=== PATIENT | male | born 1935 | race African-American/Black ===

== ENCOUNTER 2019-06-04 14:05 | Observation (INO) | payer MEDICARE, BC, MEDICAID ==
--- NOTE | 2019-06-04 15:03 | ULT ---
RIGHT LOWER EXTREMITY VENOUS DUPLEX STUDY: Date: 06/04/19 Veins of right lower extremity evaluated with ultrasound and Doppler. Color Doppler with spectral marta lysis and compression studies performed. INDICATION: Right lower extremity pain and edema. FINDINGS: Deep veins of right lower extremity demonstrate normal blood flow and compression. No evidence of tripp p venous thrombosis. IMPRESSION: No evidence of right lower extremity deep venous thrombosis. POS: [facility]
[2019-06-04 15:15] LABS: #Eosinphils 0.1 thou/uL (0.0-0.7); #Lymphocytes 1.2 thou/uL (1.20-3.40); #Monocytes 0.7 thou/uL (0.11-0.59); #Neutrophils 4.3 thou/uL (1.40-6.50); %Basophils 0.3 % (0.0-1.0); %Eosinophils 1.6 % (0.0-10.0); %Lymphocytes 19.3 % (21.0-51.0); %Monocytes 11.7 % (0.0-10.0); %Neutrophils 67.1 % (42.0-75.0); Hemoglobin 11.2 g/dL (14.0-18.0); Mean Corpuscular HGB CONC 32.1 g/dL (32.0-36.0); Mean Corpuscular Hemoglobin 27.6 pg (27.0-31.0); Mean Platelet Volume 8.9 fL (7.4-10.4); Platelet Count 197 thou/uL (130-400); RBC Distribution Width 14.6 % (11.5-14.5); Red Blood Cell (RBC) Count 4.05 mill/uL (4.70-6.10); White Blood Cell (WBC) Count 6.4 thou/uL (4.8-10.8)
--- NOTE | 2019-06-04 15:34 | RAD ---
XR Ankle Rt 3 View STANDARD HISTORY: Right ankle pain and swelling. FINDINGS: No fracture or dislocation is identified. There are calcaneal spurs. No periosteal reaction or bony d estruction is seen. Soft tissue swelling is present. IMPRESSION: No radiographic evidence of osteomyelitis.
[2019-06-04 15:56] LABS: ALT (SGPT) 31 U/L (8-55); AST (SGOT) 51 U/L (5-34); Albumin 3.8 g/dL (3.4-4.8); Alkaline Phosphatase 89 U/L (40-150); BUN (Urea Nitrogen) 38 mg/dL (8.4-25.7); Bilirubin, Total 0.2 mg/dL (0.2-1.2); Calc. Creatinine Clearance 0 mL/min (70-130); Calcium 9.6 mg/dL (7.8-10.44); Carbon Dioxide 25 mmol/L (23-31); Chloride 111 mmol/L (98-107); Estimated GFR-MDRD 44; Globulin 3.4 g/dL (2.4-3.5); Glucose 114 mg/dL (83-110); Potassium 4.2 mmol/L (3.5-5.1); Protein, Total 7.2 g/dL (5.8-8.1); Sodium 146 mmol/L (136-145)
[2019-06-04 16:05] LABS: Anion Gap 14 mmol/L (10-20)
[2019-06-04] MEDS ORDERED: metroNIDAZOLE 500 MG/100 ML BAG ONE (16:41)
[2019-06-04] MEDS ORDERED: Vancomycin HCl 1.5 GM in Sodium Chloride 0.9% 250 ML 300 ML IVPB ONE (16:45)
[2019-06-04] MEDS ORDERED: levETIRAcetam 500 MG/100 ML PREMIX BAG ONE (17:31)
[2019-06-04] MEDS ORDERED: Ondansetron ODT 4 MG TAB SL PRN (19:36)
[2019-06-04] MEDS ORDERED: Sodium Chloride 0.9% 1,000 ML IV SCH (19:36)
[2019-06-04] MEDS ORDERED: Ondansetron PF 4 MG/2 ML Vial IVP PRN (19:36)
[2019-06-04] MEDS: Sodium Chloride 0.9% 1,000 ML IV SCH (23:45)
[2019-06-05] MEDS ORDERED: metroNIDAZOLE 500 MG in Premix Bag 1 BAG IVPB SCH (01:00)
[2019-06-05 05:29] VITALS: BP 139/70; TEMP 98.1
[2019-06-05] MEDS ORDERED: Ferrous Sulfate 325 MG TAB PO SCH (09:00)
[2019-06-05] MEDS ORDERED: Enoxaparin Sodium 40 MG/0.4 ML SYRINGE SC SCH (09:00)
[2019-06-05] MEDS ORDERED: Amlodipine 5 MG TAB PO SCH (09:00)
[2019-06-05] MEDS ORDERED: Aspirin Chewable 81 MG TAB PO SCH (09:00)
[2019-06-05] MEDS ORDERED: Famotidine 20 MG TAB PO SCH (09:00)
[2019-06-05 10:38] LABS: #Eosinphils 0.1 thou/uL (0.0-0.7); #Lymphocytes 1.3 thou/uL (1.20-3.40); #Monocytes 0.7 thou/uL (0.11-0.59); #Neutrophils 4.3 thou/uL (1.40-6.50); %Basophils 0.1 % (0.0-1.0); %Eosinophils 1.9 % (0.0-10.0); %Lymphocytes 19.6 % (21.0-51.0); %Monocytes 11.4 % (0.0-10.0); Hemoglobin 10.7 g/dL (14.0-18.0); Mean Platelet Volume 8.8 fL (7.4-10.4); Platelet Count 188 thou/uL (130-400); RBC Distribution Width 14.3 % (11.5-14.5); White Blood Cell (WBC) Count 6.4 thou/uL (4.8-10.8)
[2019-06-05] MEDS ORDERED: Vancomycin HCl 1.5 GM in Sodium Chloride 0.9% 250 ML 300 ML IVPB SCH (11:00)
[2019-06-05 11:02] LABS: Anion Gap 9 mmol/L (10-20); BUN (Urea Nitrogen) 24 mg/dL (8.4-25.7); Calc. Creatinine Clearance 51 mL/min (70-130); Calcium 8.7 mg/dL (7.8-10.44); Carbon Dioxide 24 mmol/L (23-31); Chloride 111 mmol/L (98-107); Estimated GFR-MDRD 52; Glucose 74 mg/dL (83-110); Potassium 4.1 mmol/L (3.5-5.1); Sodium 140 mmol/L (136-145)
[2019-06-05] MEDS: Sodium Chloride 0.9% 1,000 ML IV SCH (11:10)
--- NOTE | 2019-06-05 13:02 | HP ---
CHIEF COMPLAINT: Swelling in right leg. HISTORY OF PRESENT ILLNESS: This patient is an 83-year-old male, who lives in a intermediate and has some dementia. The patient is unable to give any significant history. The patient has a history of being somewhat resistant to exam, treatment, and even combative at times per nursing report. The patient apparently has some chronic edema of his lower extremities. He was sent to the emergency department after noticing some specific additional swelling and redness in his right lower extremity. In the ER, the patient was noted to have an open lesion to the medial right ankle area as well. REVIEW OF SYSTEMS: Unable to obtain given the patient's mental status. PAST MEDICAL HISTORY: Obtained from the medical record includes hyperlipidemia, history of stroke, vitamin B deficiency, hypertension, dementia, Alzheimer's with behavioral disturbance, history of schizoaffective disorder, mood disruptive dysregulation disorder, anxiety, chronic insomnia, and chronic anemia. PAST SURGICAL HISTORY: Unknown, although there does not appear to be any significant evidence of prior surgeries. SOCIAL HISTORY: The patient was in a intermediate. Other than that, social history is not significantly noted. ALLERGIES: LISINOPRIL AND PENICILLINS. MEDICATIONS: 1. Guaifenesin. 2. Clonidine. 3. MiraLAX. 4. Metoprolol XL 50 mg daily. 5. Levsin p.r.n. 6. Feosol 325 b.i.d. 7. Dulcolax p.r.n. 8. Aspirin 81 mg daily. 9. Norvasc 5 mg daily. 10. Tylenol p.r.n. PHYSICAL EXAMINATION: VITAL SIGNS: Temperature is 97.9, pulse 75, and BP was 164/94. GENERAL APPEARANCE: Age-appropriate male. He is in no distress. Initially in the emergency room, the patient was talking somewhat, but on my interview in the patient's room, he is not really wanting to talk to me. His pupils are reactive. Declining in oral exam. HEART: Regular rate and rhythm without significant murmurs, gallops, or rubs. LUNGS: Clear bilaterally. ABDOMEN: Soft, nontender, and nondistended with positive bowel sounds. EXTREMITIES: The patient does have some bilateral lower extremity edema. It is about 1+ on the left and 2+ on the right with the right calf being larger than the left. There is generalized erythema and warmth encompassing the right calf area. There is an ulcerated lesion on the medial calf. It is about 2 cm in size without a significant amount of drainage present. There appears to be some varicosities in the area as well. PSYCH: As above. The patient is non-interactive. NEUROLOGIC: The patient appears to be moving his extremities generally spontaneously. LABORATORY DATA: White count 6.4, hemoglobin 11.2, platelets 197. Sodium 146, potassium 4.2, chloride 111, CO2 is 25, BUN 38, creatinine 1.81, GFR is 44, calcium 9.6, AST 51, ALT is 31. CRP is 2.35. Vascular ultrasound shows no evidence of DVT and ankle x-ray shows no evidence of acute osteo. IMPRESSION AND PLAN: 1. Cellulitis of the right lower extremity, appears to be emanating from a stasis ulcer. The patient will be placed on IV antibiotics to include vancomycin and Zosyn initially. He has already received vancomycin, Levaquin and Flagyl in the emergency department. 2. Stasis ulcer. We will get Wound Care to evaluate and treat. 3. Chronic kidney disease stage 3. Looks to be at his baseline creatinine levels. 4. Mild hypernatremia. I suspect he is a bit dry. We will hydrate. 5. History of dementia with behavior disturbance. So far, the patient has been okay. We will provide some p.r.n.'s in case that should occur again for safety of the staff. 6. Hypertension. Continue with metoprolol and amlodipine. Job ID: [id number]
[2019-06-05 13:33] VITALS: BMI 32.2
[2019-06-05] MEDS ORDERED: Clindamycin/D5W 900 MG in Premix Bag 1 BAG IVPB SCH (14:00)
[2019-06-05] MEDS ORDERED: Prevnar 13-Val Conj/PF 0.5 ML SYRINGE IM ONE (21:00)
[2019-06-05] MEDS ORDERED: Vancomycin HCl 1 GM in Premix Bag 1 BAG IVPB SCH (21:00)
== END 2019-06-05 14:11 ==
LOC: ERS 14:05 → T4-A 17:05
PROVIDERS: ADMIT Internal Medicine; ATTEND Internal Medicine
DX: I83.008 Varicose veins of unspecified lower extremity with ulcer other part of lower leg (principal); L97.809 Non-pressure chronic ulcer of other part of unspecified lower leg with unspecified severity; E78.5 Hyperlipidemia, unspecified; I12.9 Hypertensive chronic kidney disease with stage 1 through stage 4 chronic kidney disease, or unspecified chronic kidney disease; N18.3 Chronic kidney disease, stage 3 (moderate); G30.9 Alzheimer's disease, unspecified; F02.81 Dementia in other diseases classified elsewhere, unspecified severity, with behavioral disturbance; F41.9 Anxiety disorder, unspecified; F51.04 Psychophysiologic insomnia; E87.0 Hyperosmolality and hypernatremia; Z79.82 Long term (current) use of aspirin; Z79.899 Other long term (current) drug therapy; Z86.73 Personal history of transient ischemic attack (TIA), and cerebral infarction without residual deficits; Z88.0 Allergy status to penicillin; Z88.8 Allergy status to other drugs, medicaments and biological substances; D64.9 Anemia, unspecified
CPT/HCPCS: 73610; 80048; 80053; 85025 ×2; 85652; 86140; 93971; 96361 ×2; 96365; 96366 ×2; 96368; 99285; G0378 ×3; 36415; J1650; J1953; J1956; J3370; J7050

== ENCOUNTER 2019-09-27 12:31 | Inpatient (IN) | payer MEDICARE, BC, MEDICAID ==
[2019-09-27 13:30] LABS: Hemoglobin 10.8 g/dL (14.0-18.0); Mean Corpuscular Hemoglobin 27.6 pg (27.0-31.0); Platelet Count 166 thou/uL (130-400); RBC Distribution Width 15.6 % (11.5-14.5); Red Blood Cell (RBC) Count 3.93 mill/uL (4.70-6.10); White Blood Cell (WBC) Count 16.1 thou/uL (4.8-10.8)
[2019-09-27 13:49] LABS: ALT (SGPT) 19 U/L (8-55); AST (SGOT) 20 U/L (5-34); Albumin 3.3 g/dL (3.4-4.8); Alkaline Phosphatase 94 U/L (40-110); Anion Gap 13 mmol/L (10-20); BUN (Urea Nitrogen) 49 mg/dL (8.4-25.7); Band 17 % (5-11); Bilirubin, Total 0.3 mg/dL (0.2-1.2); Calc. Creatinine Clearance 0 mL/min (70-130); Calcium 9.4 mg/dL (7.8-10.44); Carbon Dioxide 25 mmol/L (23-31); Chloride 111 mmol/L (98-107); Estimated GFR-MDRD 29; Globulin 4.1 g/dL (2.4-3.5); Glucose 75 mg/dL (83-110); Lymphocytes 7 % (21-51); MDiff Complete? YES; Metamyelocyte 1 % (0-0); Monocytes 1 % (0-10); Neutrophil 74 % (42-75); Potassium 3.8 mmol/L (3.5-5.1); Protein, Total 7.4 g/dL (5.8-8.1); Sodium 145 mmol/L (136-145)
[2019-09-27] MEDS ORDERED: cefTRIAXone\\ROCEPHIN 2 GM VIAL ONE (14:02)
[2019-09-27] MEDS ORDERED: Acetaminophen 325 MG TAB PO PRN (14:14)
[2019-09-27 14:19] LABS: Bilirubin Negative (Negative); Blood, Urine 1+ (Negative); Clarity Clear (Clear); Glucose, Urine (Dipstick) Normal (Negative); Leukocyte Negative Leu/uL (Negative); Nitrite Negative (Negative); Protein, Urine (Dipstick) 30 mg/dL (Neg-Trace); RBC/HPF 0-3 HPF (0-3); Squamous Epithelial 0-3 HPF (0-3); Urobilinogen Normal mg/dL (Less than 2); WBC/HPF 0-3 HPF (0-3)
--- NOTE | 2019-09-27 14:24 | RAD ---
EXAM: XR Tib Fib Rt Leg 2 View PROVIDED CLINICAL HISTORY: Pain FINDINGS: There is no evidence for fracture or other acute osseous abnormality. Alignment appears anatomic. Kelsie nt spaces appear preserved. IMPRESSION: No evidence for an acute osseous abnormality. If there is persistent clinical concern, conservative m anagement and follow-up imaging advised.
[2019-09-27 14:38] LABS: Bacteria/HPF 1+ HPF (None Seen)
[2019-09-27] MEDS ORDERED: cloNIDine 0.1 MG TAB PO PRN ×2 (15:52→16:46)
[2019-09-27 15:56] VITALS: BMI 29.8
[2019-09-27] MEDS ORDERED: Vancomycin 1.5 GRAM/300 ML BAG 1.5 GM in Premix Bag 1 BAG IVPB SCH (16:15)
[2019-09-27] MEDS ORDERED: Haloperidol Lactate 5 MG/ML VIAL IM SCH (16:30)
[2019-09-27] MEDS: Ziprasidone 20 MG VIAL IM PRN ×2 (16:40→22:44)
[2019-09-27] MEDS ORDERED: Sodium Chloride 0.9% 1,000 ML IV SCH (16:45)
--- NOTE | 2019-09-27 17:12 | HP ---
CHIEF COMPLAINT: Possible right lower extremity wound infection. HISTORY OF PRESENT ILLNESS: The patient is an 84-year-old male with a history of dementia and also with a history of bipolar disorder, who was brought into the hospital from his [place] [facility] with worsening right lower extremity wound. The patient currently is very agitated, unable to provide any history. I did call the . I left message to give us a call back. Per the ER notes, the patient has been seeing wound care for his wound in his right lower extremity, however, it continues to become be more red and he also had some redness to his groin area. PAST MEDICAL HISTORY: Per records, the patient has a history of TIA, stroke, anemia, hypertension, dementia, metabolic encephalopathy. PAST SURGICAL HISTORY: Unknown. This is per records. SOCIAL HISTORY: He is in [place] [facility]. I do not have a code status, that is why I called the patient's , unable to reach her. It does not appear that the patient has a history of smoking history, alcohol use, or drug use. ALLERGIES: ALLERGIC TO LISINOPRIL AND PENICILLIN, UNKNOWN REACTION. MEDICATIONS: He is on; 1. MiraLAX 17 g daily. 2. Metoprolol 50 mg daily. 3. Dulcolax p.r.n. 4. Aspirin 81 mg daily. 5. Norvasc 5 mg daily. 6. Tylenol as needed. 7. Clonidine every 6 p.r.n. FAMILY HISTORY: Unable to obtain. The patient is not in a position to give me that. REVIEW OF SYSTEMS: Unable to obtain. The patient's mental status is not listed. PHYSICAL EXAMINATION: VITAL SIGNS: As of the following; temperature of 97.4, pulse 82, respirations 20, 94% on room air, blood pressure 152/82. GENERAL: He is awake, however, very confused, very combative. CV: S1 and S2 present. No murmurs, rubs, or gallops. LUNGS: Clear to auscultation. No rhonchi or wheezes noted. ABDOMEN: Soft. Bowel sounds are present x2. EXTREMITIES: His right foot appears to have some erythema. He does have a pretty significant open wound to his right lower lemus area. Unable to appreciate any pedal pulses. The patient is very combative at this time. The patient's right groin area appears very lazarus. Upon examining his right testicle, no significant erythema noted. However, he does have significant redness around his right inner thigh area. NEUROVASCULAR: Neurovascular murguia, he is moving all 4 extremities. However, mentation murguia, he is not oriented x3 at all. SKIN: As I mentioned, he has a significant nonhealing ulcer to his right lower lemus area and redness around his right thigh area. LABORATORY RESULTS: As of the following; WBCs of 16.1, hemoglobin of 10.8, hematocrit of 33.8, platelets 166. Chemistry; sodium of 145, potassium of 3.8, BUN of 49, creatinine of 2.59, glucose of 75. He did have a tibia-fibula x-ray which did not indicate any acute processes. No evidence of osseous abnormalities. ASSESSMENT AND PLAN: The patient is an 84-year-old male, who presents to the hospital with worsening right lower extremity wound. 1. Cellulitis. Possible right groin cellulitis and also he has some erythema to his right lower extremity where his old wound was. We will go ahead and do lower extremity venous Dopplers to rule out any acute DVT. We will also start him on some broad-spectrum antibiotics. May consider consulting Infectious Disease. He has had an ulcer to his right leg around the same area in the past. May also consider arterial Dopplers to see the flow. 2. Acute kidney injury. The patient's baseline creatinine is around 1.5, today it is 2.59. We will start him on some gentle hydration. Continue to monitor. 3. Leukocytosis. This is most likely secondary to his cellulitis. We will continue to monitor. 4. Dementia. The patient is really not oriented x3 at all. He is trying to get up combative. We have called his . We might have to get a sitter and we will have to give him some chemical restraints if the patient continues to be agitated. 5. DVT prophylaxis. We will put the patient on some subcu heparin. Job ID: [id number]
[2019-09-27] MEDS ORDERED: Acetaminophen 650 MG Suppository PR PRN (18:57)
[2019-09-27] MEDS ORDERED: Vancomycin HCl 1 GM in Premix Bag 1 BAG IVPB SCH (21:00)
[2019-09-27] MEDS: Ascorbic Acid 500 mg Chewable Tablet PO SCH (22:36)
[2019-09-27] MEDS: Ferrous Sulfate 325 MG TAB PO SCH (22:37)
[2019-09-28 06:44] LABS: Anion Gap 13 mmol/L (10-20); BUN (Urea Nitrogen) 37 mg/dL (8.4-25.7); Calc. Creatinine Clearance 38 mL/min (70-130); Calcium 9.5 mg/dL (7.8-10.44); Carbon Dioxide 21 mmol/L (23-31); Chloride 114 mmol/L (98-107); Estimated GFR-MDRD 39; Glucose 74 mg/dL (83-110); Potassium 4.1 mmol/L (3.5-5.1); Sodium 144 mmol/L (136-145)
--- NOTE | 2019-09-28 07:36 | ULT ---
EXAM: Bilateral lower extremity venous Doppler PROVIDED CLINICAL HISTORY: Pain, edema, redness FINDINGS: Grayscale and color Doppler sonography with spectral analysis was performed of the common femoral, fe moral, popliteal, posterior tibial, greater saphenous and profunda femoral veins bilaterally. The evaluated venous structures demonstrate a normal sonographic appearance. IMPRESSION: No sonographic evidence for lower extremity deep venous thrombosis.
[2019-09-28 07:44] LABS: Anisocytosis SLIGHT = 6-15 cells (100X) (0-5/hpf); Band 22 % (5-11); Eosinophils 1 % (0-10); Hemoglobin 11.3 g/dL (14.0-18.0); Lymphocytes 7 % (21-51); MDiff Complete? YES; Mean Corpuscular HGB CONC 31.2 g/dL (32.0-36.0); Mean Corpuscular Hemoglobin 27.2 pg (27.0-31.0); Mean Corpuscular Volume 87.1 fL (78.0-98.0); Mean Platelet Volume 10.6 fL (7.4-10.4); Neutrophil 69 % (42-75); Platelet Count 145 thou/uL (130-400); RBC Distribution Width 15.9 % (11.5-14.5); Reactive Lymphocytes 1 % (0-10); Red Blood Cell (RBC) Count 4.15 mill/uL (4.70-6.10); White Blood Cell (WBC) Count 14.6 thou/uL (4.8-10.8)
[2019-09-28] MEDS: cefTRIAXone\\ROCEPHIN 1 GM in Sodium Chloride 0.9% 100 ML IVPB SCH (08:15)
[2019-09-28] MEDS: Enoxaparin Sodium 30 MG/0.3 ML SYRINGE SC SCH (08:17)
[2019-09-28] MEDS ORDERED: Prevnar 13-Val Conj/PF 0.5 ML SYRINGE IM ONE (09:00)
[2019-09-28] MEDS ORDERED: FLU VACC TS2019-20(65YR UP)/PF 180 MCG/0.5 ML SYRINGE IM ONE (09:00)
[2019-09-28] MEDS: Ferrous Sulfate 325 MG TAB PO SCH ×2 (09:24→21:43)
[2019-09-28] MEDS: Amlodipine 5 MG TAB PO SCH (09:24)
[2019-09-28] MEDS: Aspirin Chewable 81 MG TAB PO SCH (09:24)
[2019-09-28] MEDS: Ascorbic Acid 500 mg Chewable Tablet PO SCH ×2 (09:24→21:43)
[2019-09-28] MEDS: Zinc Sulfate 220 MG CAP PO SCH (09:25)
[2019-09-28] MEDS: Polyethylene Glycol 3350 17 GM Packet PO SCH (09:25)
[2019-09-28] MEDS: Lactinex Tablet PO SCH (09:25)
--- NOTE | 2019-09-28 14:41 | PDOC.HOSPP ---
- Subjective Encounter Date: 09/28/19 Encounter Time: 11:00 Subjective: pt up in bed confused. - Objective Vital Signs & Weight: Vital Signs (12 hours) Temp Pulse Resp BP Pulse Ox 09/28/19 11:37 97.4 F L 77 20 164/95 H 97 09/28/19 09:24 75 09/28/19 08:06 97.4 F L 75 20 212/86 H 93 L 09/28/19 08:00 93 L 09/28/19 04:00 73 18 167/88 H 97 Weight Weight 220 lb I&O: 09/27/19 09/28/19 09/29/19 06:59 06:59 06:59 Intake Total 425 180 Output Total 425 Balance 0 180 Result Diagrams: 09/28/19 06:04 09/28/19 06:04 Additional Labs: Accuchecks 09/28/19 11:35 POC Glucose 72 Hospitalist ROS - Review of Systems Other: unable to obtain - Medication Medications: Active Medications Generic Name Dose Route Start Last Admin Trade Name Freq PRN Reason Stop Dose Admin Acidophilus 1 tab 09/28/19 09:00 09/28/19 09:25 Floranex PO Not Given DAILY [facility] Amlodipine Besylate 5 mg 09/28/19 09:00 09/28/19 09:24 Norvasc PO Not Given DAILY [facility] Ascorbic Acid 500 mg 09/27/19 21:00 09/28/19 09:24 Vitamin C PO Not Given BID [facility] Aspirin 81 mg 09/28/19 09:00 09/28/19 09:24 Aspirin Chewable PO Not Given DAILY [facility] Enoxaparin Sodium 30 mg 09/28/19 09:00 09/28/19 08:17 Lovenox SC 30 mg 09 [facility] Administration Ferrous Sulfate 325 mg 09/27/19 21:00 09/28/19 09:24 Feosol PO Not Given BID [facility] Ceftriaxone Sodium 1 gm/ 100 mls @ 200 mls/hr 09/28/19 09:00 09/28/19 08:15 Sodium Chloride IVPB 100 mls Q24HR [facility] Administration Metoprolol Succinate 50 mg 09/28/19 09:00 09/28/19 09:25 Toprol Xl PO Not Given DAILY [facility] Polyethylene Glycol 17 gm 09/28/19 09:00 09/28/19 09:25 Miralax PO Not Given DAILY [facility] Zinc Sulfate 220 mg 09/28/19 09:00 09/28/19 09:25 Zinc Sulfate PO Not Given DAILY [facility] Ziprasidone 10 mg 09/27/19 16:31 09/27/19 22:44 Geodon IM 10 mg Q6H PRN Administration Agitation - Exam Heart: negative: RRR, no murmur, no gallops, no rubs, normal peripheral pulses, irregular, diminshed peripheral pulses, murmur present, II/IV, III/IV Respiratory: negative: CTAB, no wheezes, no rales, no ronchi, normal chest expansion, no tachypnea, normal percussion, rales, rhonchi, tachypneic, wheezes Gastrointestinal: negative: soft, non-tender, non-distended, normal bowel sounds , no palpable masses, no hepatomegaly, no splenomegaly, no bruit, no guarding, no rigidity, tender to palpation, distended, diminished bowl sounds, voluntary guarding Skin - other findings: right thigh still has some erythema improved from yest Hosp A/P (1) Acute metabolic encephalopathy Code(s): G93.41 - METABOLIC ENCEPHALOPATHY Status: Acute (2) Cellulitis Code(s): L03.90 - CELLULITIS, UNSPECIFIED Status: Acute (3) Schizoaffective disorder Code(s): F25.9 - SCHIZOAFFECTIVE DISORDER, UNSPECIFIED Status: Acute (4) Hypertension Code(s): I10 - ESSENTIAL (PRIMARY) HYPERTENSION Status: Chronic (5) LELE (acute kidney injury) Code(s): N17.9 - ACUTE KIDNEY FAILURE, UNSPECIFIED Status: Acute - Plan pt was very agitated and was given medication. will continue abx for now. doppler is negative. will add seroquel for tonight. will continue iv fluids. tried to call the number no answer. will get palliative care for this patient.
[2019-09-28 16:47] LABS: Vancomycin, Random 10.9 ug/mL (See Comment)
[2019-09-28] MEDS ORDERED: Vancomycin 1.5 GRAM/300 ML BAG 1.5 GM in Premix Bag 1 BAG IVPB SCH (20:00)
[2019-09-28] MEDS: Ziprasidone 20 MG VIAL IM PRN (20:48)
[2019-09-29] MEDS: Zinc Sulfate 220 MG CAP PO SCH (07:57)
[2019-09-29] MEDS: Ferrous Sulfate 325 MG TAB PO SCH ×2 (07:57→21:00)
[2019-09-29] MEDS: Lactinex Tablet PO SCH (07:57)
[2019-09-29] MEDS: Ascorbic Acid 500 mg Chewable Tablet PO SCH ×2 (07:57→21:00)
[2019-09-29] MEDS: Amlodipine 5 MG TAB PO SCH (07:58)
[2019-09-29] MEDS: Aspirin Chewable 81 MG TAB PO SCH (07:59)
[2019-09-29] MEDS: cefTRIAXone\\ROCEPHIN 1 GM in Sodium Chloride 0.9% 100 ML IVPB SCH (07:59)
[2019-09-29] MEDS: Enoxaparin Sodium 30 MG/0.3 ML SYRINGE SC SCH (07:59)
[2019-09-29] MEDS: Polyethylene Glycol 3350 17 GM Packet PO SCH (08:00)
[2019-09-29] MEDS: hydrALAZINE 20 MG/ML VIAL SLOW IVP PRN (08:38)
--- NOTE | 2019-09-29 13:36 | PDOC.HOSPP ---
- Subjective Encounter Date: 09/29/19 Encounter Time: 12:15 Subjective: pt drowsy and when we wake him up he gets agitated. - Objective Vital Signs & Weight: Vital Signs (12 hours) Temp Pulse Resp BP BP BP Pulse Ox 09/29/19 12:00 99.0 F 93 20 175/87 H 98 09/29/19 09:54 165/79 H 09/29/19 08:38 87 204/98 H 09/29/19 08:00 97.9 F 84 18 204/98 H 97 09/29/19 07:58 85 09/29/19 04:25 89 16 165/83 H 99 09/29/19 04:13 99.1 F 91 20 184/99 H 99 Weight Weight 220 lb I&O: 09/28/19 09/29/19 09/30/19 06:59 06:59 06:59 Intake Total 425 200 Output Total 425 Balance 0 200 Result Diagrams: 09/28/19 06:04 09/28/19 06:04 Additional Labs: Accuchecks 09/29/19 09/28/19 12:13 16:57 POC Glucose 63 L 75 Hospitalist ROS - Review of Systems Other: unable to obtain - Medication Medications: Active Medications Generic Name Dose Route Start Last Admin Trade Name Freq PRN Reason Stop Dose Admin Acidophilus 1 tab 09/28/19 09:00 09/29/19 07:57 Floranex PO 1 tab DAILY [facility] Administration Amlodipine Besylate 5 mg 09/28/19 09:00 09/29/19 07:58 Norvasc PO 5 mg DAILY [facility] Administration Ascorbic Acid 500 mg 09/27/19 21:00 09/29/19 07:57 Vitamin C PO 500 mg BID [facility] Administration Aspirin 81 mg 09/28/19 09:00 09/29/19 07:59 Aspirin Chewable PO 81 mg DAILY [facility] Administration Enoxaparin Sodium 30 mg 09/28/19 09:00 09/29/19 07:59 Lovenox SC 30 mg 0900 [facility] Administration Ferrous Sulfate 325 mg 09/27/19 21:00 09/29/19 07:57 Feosol PO 325 mg BID [facility] Administration Hydralazine HCl 5 mg 09/28/19 08:15 09/29/19 08:38 Apresoline SLOW IVP 5 mg Q6H PRN Administration sbp>170 Ceftriaxone Sodium 1 gm/ 100 mls @ 200 mls/hr 09/28/19 09:00 09/29/19 07:59 Sodium Chloride IVPB 100 mls Q24HR [facility] Administration Metoprolol Succinate 50 mg 09/28/19 09:00 09/29/19 07:58 Toprol Xl PO 50 mg DAILY [facility] Administration Polyethylene Glycol 17 gm 09/28/19 09:00 09/29/19 08:00 Miralax PO 17 gm DAILY [facility] Administration Quetiapine Fumarate 50 mg 09/28/19 19:00 09/28/19 17:24 Seroquel PO 50 mg 1900 [facility] Administration Zinc Sulfate 220 mg 09/28/19 09:00 09/29/19 07:57 Zinc Sulfate PO 220 mg DAILY [facility] Administration - Exam Neck: negative: supple, symmetric, no JVD, no thyromegaly, no lymphadenopathy, no carotid bruit, JVD Heart: negative: RRR, no murmur, no gallops, no rubs, normal peripheral pulses, irregular, diminshed peripheral pulses, murmur present, II/IV, III/IV Respiratory: negative: CTAB, no wheezes, no rales, no ronchi, normal chest expansion, no tachypnea, normal percussion, rales, rhonchi, tachypneic, wheezes Gastrointestinal: negative: soft, non-tender, non-distended, normal bowel sounds , no palpable masses, no hepatomegaly, no splenomegaly, no bruit, no guarding, no rigidity, tender to palpation, distended, diminished bowl sounds, voluntary guarding Skin - other findings: right erythema improving Hosp A/P (1) Acute metabolic encephalopathy Code(s): G93.41 - METABOLIC ENCEPHALOPATHY Status: Acute (2) Cellulitis Code(s): L03.90 - CELLULITIS, UNSPECIFIED Status: Acute (3) Schizoaffective disorder Code(s): F25.9 - SCHIZOAFFECTIVE DISORDER, UNSPECIFIED Status: Acute (4) Hypertension Code(s): I10 - ESSENTIAL (PRIMARY) HYPERTENSION Status: Chronic (5) LELE (acute kidney injury) Code(s): N17.9 - ACUTE KIDNEY FAILURE, UNSPECIFIED Status: Acute - Plan pt was very agitated and was given medication. will continue abx for now. doppler is negative. will add seroquel for tonight. will continue iv fluids. tried to call the number no answer. will get palliative care for this patient. 09/29 pt given meds for agitation last night. He is now drowsy. i called the alf to ask his baseline. They informed me that he is agitated at time but at time he does well. They feed him finger foods and then he at times tries to feed himself. Per nursing he also ambulates. I did ask for any additional numbers since his did not picker / packer. They informed me it is the same number and at times pt's goes to see her sister. i have decreased the dose of geodon. will order finger food and get palliative care. his cellulitis is doing well. I am afraid he is not eating and will get more weaker.
[2019-09-29] MEDS: Dextrose 5 % And 0.9 % NaCl 1,000 ML IV SCH (13:45)
[2019-09-29 18:50] LABS: Vancomycin, Random 17.6 ug/mL (See Comment)
[2019-09-29] MEDS ORDERED: Vancomycin 1.5 GRAM/300 ML BAG 1.5 GM in Premix Bag 1 BAG IVPB SCH (20:00)
[2019-09-30] MEDS: hydrALAZINE 20 MG/ML VIAL SLOW IVP PRN (05:13)
[2019-09-30 05:36] LABS: Anion Gap 12 mmol/L (10-20); BUN (Urea Nitrogen) 18 mg/dL (8.4-25.7); Calc. Creatinine Clearance 41 mL/min (70-130); Calcium 9.2 mg/dL (7.8-10.44); Carbon Dioxide 23 mmol/L (23-31); Chloride 115 mmol/L (98-107); Estimated GFR-MDRD 42; Glucose 100 mg/dL (83-110); Potassium 3.5 mmol/L (3.5-5.1); Sodium 146 mmol/L (136-145)
[2019-09-30 06:51] LABS: Anisocytosis SLIGHT = 6-15 cells (100X) (0-5/hpf); Band 5 % (5-11); Eosinophils 2 % (0-10); Lymphocytes 23 % (21-51); MDiff Complete? YES; Mean Corpuscular HGB CONC 31.5 g/dL (32.0-36.0); Mean Corpuscular Hemoglobin 26.9 pg (27.0-31.0); Mean Corpuscular Volume 85.7 fL (78.0-98.0); Mean Platelet Volume 9.8 fL (7.4-10.4); Monocytes 4 % (0-10); Neutrophil 66 % (42-75); Platelet Count 170 thou/uL (130-400); RBC Distribution Width 15.7 % (11.5-14.5); White Blood Cell (WBC) Count 8.4 thou/uL (4.8-10.8)
[2019-09-30] MEDS: Lactinex Tablet PO SCH (07:58)
[2019-09-30] MEDS: Ferrous Sulfate 325 MG TAB PO SCH ×2 (07:59→19:55)
[2019-09-30] MEDS: Aspirin Chewable 81 MG TAB PO SCH (07:59)
[2019-09-30] MEDS: Ascorbic Acid 500 mg Chewable Tablet PO SCH ×2 (07:59→19:55)
[2019-09-30] MEDS: Amlodipine 5 MG TAB PO SCH (07:59)
[2019-09-30] MEDS: Zinc Sulfate 220 MG CAP PO SCH (07:59)
[2019-09-30] MEDS: cefTRIAXone\\ROCEPHIN 1 GM in Sodium Chloride 0.9% 100 ML IVPB SCH (08:00)
[2019-09-30] MEDS: Enoxaparin Sodium 30 MG/0.3 ML SYRINGE SC SCH (08:00)
[2019-09-30] MEDS: Dextrose 5 % And 0.9 % NaCl 1,000 ML IV SCH (08:01)
[2019-09-30] MEDS: Polyethylene Glycol 3350 17 GM Packet PO SCH (08:01)
--- NOTE | 2019-09-30 14:30 | PDOC.HOSPP ---
- Subjective Encounter Date: 09/30/19 Encounter Time: 11:00 Subjective: pt up in bed confused - Objective Vital Signs & Weight: Vital Signs (12 hours) Temp Pulse Resp BP BP BP Pulse Ox 09/30/19 12:00 98.0 F 76 20 170/110 H 97 09/30/19 08:00 100 09/30/19 07:59 85 09/30/19 07:29 98.4 F 85 20 100 09/30/19 06:00 137/95 H 09/30/19 05:13 82 175/98 H 09/30/19 04:46 99.0 F 81 20 181/85 H 94 L Weight Admit Weight 220 lb Weight 220 lb I&O: 09/29/19 09/30/19 10/01/19 06:59 06:59 06:59 Intake Total 200 1000 120 Output Total 250 Balance 200 750 120 Result Diagrams: 09/30/19 05:03 09/30/19 05:03 Hospitalist ROS - Medication Medications: Active Medications Generic Name Dose Route Start Last Admin Trade Name Freq PRN Reason Stop Dose Admin Acidophilus 1 tab 09/28/19 09:00 09/30/19 07:58 Floranex PO 1 tab DAILY [facility] Administration Amlodipine Besylate 5 mg 09/28/19 09:00 09/30/19 07:59 Norvasc PO 5 mg DAILY [facility] Administration Ascorbic Acid 500 mg 09/27/19 21:00 09/30/19 07:59 Vitamin C PO 500 mg BID [facility] Administration Aspirin 81 mg 09/28/19 09:00 09/30/19 07:59 Aspirin Chewable PO 81 mg DAILY [facility] Administration Enoxaparin Sodium 30 mg 09/28/19 09:00 09/30/19 08:00 Lovenox SC 30 mg 0900 [facility] Administration Ferrous Sulfate 325 mg 09/27/19 21:00 09/30/19 07:59 Feosol PO 325 mg BID [facility] Administration Hydralazine HCl 5 mg 09/28/19 08:15 09/30/19 05:13 Apresoline SLOW IVP 5 mg Q6H PRN Administration sbp>170 Ceftriaxone Sodium 1 gm/ 100 mls @ 200 mls/hr 09/28/19 09:00 09/30/19 08:00 Sodium Chloride IVPB 100 mls Q24HR [facility] Administration Dextrose/Sodium Chloride 1,000 mls @ 50 mls/hr 09/29/19 13:45 09/30/19 08:01 D5 0.9% Ns IV 1,000 mls .Q20H [facility] Administration Metoprolol Succinate 50 mg 09/28/19 09:00 09/30/19 07:59 Toprol Xl PO 50 mg DAILY [facility] Administration Polyethylene Glycol 17 gm 09/28/19 09:00 09/30/19 08:01 Miralax PO 17 gm DAILY [facility] Administration Quetiapine Fumarate 50 mg 09/28/19 19:00 09/29/19 18:31 Seroquel PO 50 mg 1900 [facility] Administration Zinc Sulfate 220 mg 09/28/19 09:00 09/30/19 07:59 Zinc Sulfate PO 220 mg DAILY [facility] Administration - Exam Heart: negative: RRR, no murmur, no gallops, no rubs, normal peripheral pulses, irregular, diminshed peripheral pulses, murmur present, II/IV, III/IV Respiratory: negative: CTAB, no wheezes, no rales, no ronchi, normal chest expansion, no tachypnea, normal percussion, rales, rhonchi, tachypneic, wheezes Gastrointestinal: negative: soft, non-tender, non-distended, normal bowel sounds , no palpable masses, no hepatomegaly, no splenomegaly, no bruit, no guarding, no rigidity, tender to palpation, distended, diminished bowl sounds, voluntary guarding Hosp A/P (1) Acute metabolic encephalopathy Code(s): G93.41 - METABOLIC ENCEPHALOPATHY Status: Acute (2) Cellulitis Code(s): L03.90 - CELLULITIS, UNSPECIFIED Status: Acute (3) Schizoaffective disorder Code(s): F25.9 - SCHIZOAFFECTIVE DISORDER, UNSPECIFIED Status: Acute (4) Hypertension Code(s): I10 - ESSENTIAL (PRIMARY) HYPERTENSION Status: Chronic (5) LELE (acute kidney injury) Code(s): N17.9 - ACUTE KIDNEY FAILURE, UNSPECIFIED Status: Acute - Plan pt was very agitated and was given medication. will continue abx for now. doppler is negative. will add seroquel for tonight. will continue iv fluids. tried to call the number no answer. will get palliative care for this patient. 09/29 pt given meds for agitation last night. He is now drowsy. i called the senior care to ask his baseline. They informed me that he is agitated at time but at time he does well. They feed him finger foods and then he at times tries to feed himself. Per nursing he also ambulates. I did ask for any additional numbers since his did not pick out hand. They informed me it is the same number and at times pt's goes to see her sister. i have decreased the dose of geodon. will order finger food and get palliative care. his cellulitis is doing well. I am afraid he is not eating and will get more weaker. 09/30 pt did eat some food yesterday. His mood is better. will hold off on geodon and give him seroquel. will continue abx. will call his in am since she goes to see her sister in the afternoon.
[2019-10-01 01:31] LABS: Vancomycin, Random 16.3 ug/mL (See Comment)
[2019-10-01] MEDS: Dextrose 5 % And 0.9 % NaCl 1,000 ML IV SCH (05:47)
[2019-10-01] MEDS: Amlodipine 5 MG TAB PO SCH (08:13)
[2019-10-01] MEDS: Lactinex Tablet PO SCH (08:14)
[2019-10-01] MEDS: Aspirin Chewable 81 MG TAB PO SCH (08:14)
[2019-10-01] MEDS: Ferrous Sulfate 325 MG TAB PO SCH ×2 (08:14→20:10)
[2019-10-01] MEDS: Zinc Sulfate 220 MG CAP PO SCH (08:15)
[2019-10-01] MEDS: Ascorbic Acid 500 mg Chewable Tablet PO SCH ×2 (08:15→20:10)
[2019-10-01] MEDS: Polyethylene Glycol 3350 17 GM Packet PO SCH (08:15)
[2019-10-01] MEDS: Enoxaparin Sodium 30 MG/0.3 ML SYRINGE SC SCH (08:15)
[2019-10-01] MEDS: cefTRIAXone\\ROCEPHIN 1 GM in Sodium Chloride 0.9% 100 ML IVPB SCH (08:23)
[2019-10-01] MEDS: Vancomycin HCl 1 GM in Premix Bag 1 BAG IVPB SCH (08:28)
--- NOTE | 2019-10-01 21:25 | PDOC.HOSPP ---
- Subjective Encounter Date: 10/01/19 Encounter Time: 10:00 Subjective: pt up in bed confused - Objective Vital Signs & Weight: Vital Signs (12 hours) Temp Pulse Resp BP BP Pulse Ox 10/01/19 19:22 99.7 F H 87 20 124/58 L 10/01/19 16:00 98.4 F 80 20 156/70 H 97 Weight Admit Weight 220 lb Weight 220 lb I&O: 09/30/19 10/01/19 10/02/19 06:59 06:59 06:59 Intake Total 1000 180 Output Total 250 Balance 750 180 Result Diagrams: 09/30/19 05:03 09/30/19 05:03 Additional Labs: Accuchecks 10/01/19 04:13 POC Glucose 121 H Hospitalist ROS - Review of Systems Other: unable to obtain - Medication Medications: Active Medications Generic Name Dose Route Start Last Admin Trade Name Freq PRN Reason Stop Dose Admin Acidophilus 1 tab 09/28/19 09:00 10/01/19 08:14 Floranex PO 1 tab DAILY DIAN Administration Amlodipine Besylate 5 mg 09/28/19 09:00 10/01/19 08:13 Norvasc PO 5 mg DAILY DIAN Administration Ascorbic Acid 500 mg 09/27/19 21:00 10/01/19 20:10 Vitamin C PO 500 mg BID DIAN Administration Aspirin 81 mg 09/28/19 09:00 10/01/19 08:14 Aspirin Chewable PO 81 mg DAILY DIAN Administration Enoxaparin Sodium 30 mg 09/28/19 09:00 10/01/19 08:15 Lovenox SC 30 mg 0900 DIAN Administration Ferrous Sulfate 325 mg 09/27/19 21:00 10/01/19 20:10 Feosol PO 325 mg BID DIAN Administration Hydralazine HCl 5 mg 09/28/19 08:15 09/30/19 05:13 Apresoline SLOW IVP 5 mg Q6H PRN Administration sbp>170 Ceftriaxone Sodium 1 gm/ 100 mls @ 200 mls/hr 09/28/19 09:00 10/01/19 08:23 Sodium Chloride IVPB 100 mls Q24HR DIAN Administration Dextrose/Sodium Chloride 1,000 mls @ 50 mls/hr 09/29/19 13:45 10/01/19 05:47 D5 0.9% Ns IV Not Given .Q20H DIAN Vancomycin HCl 1 gm/ Device 200 mls @ 200 mls/hr 10/01/19 08:00 10/01/19 08: 28 IVPB 200 mls 0800 DIAN Administration Metoprolol Succinate 50 mg 09/28/19 09:00 10/01/19 08:15 Toprol Xl PO 50 mg DAILY DIAN Administration Polyethylene Glycol 17 gm 09/28/19 09:00 10/01/19 08:15 Miralax PO 17 gm DAILY DIAN Administration Quetiapine Fumarate 50 mg 09/28/19 19:00 10/01/19 20:09 Seroquel PO 50 mg 1900 DIAN Administration Zinc Sulfate 220 mg 09/28/19 09:00 10/01/19 08:15 Zinc Sulfate PO 220 mg DAILY DIAN Administration - Exam Neck: negative: supple, symmetric, no JVD, no thyromegaly, no lymphadenopathy, no carotid bruit, JVD Heart: negative: RRR, no murmur, no gallops, no rubs, normal peripheral pulses, irregular, diminshed peripheral pulses, murmur present, II/IV, III/IV Respiratory: negative: CTAB, no wheezes, no rales, no ronchi, normal chest expansion, no tachypnea, normal percussion, rales, rhonchi, tachypneic, wheezes Gastrointestinal: negative: soft, non-tender, non-distended, normal bowel sounds , no palpable masses, no hepatomegaly, no splenomegaly, no bruit, no guarding, no rigidity, tender to palpation, distended, diminished bowl sounds, voluntary guarding Hosp A/P (1) Acute metabolic encephalopathy Code(s): G93.41 - METABOLIC ENCEPHALOPATHY Status: Acute (2) Cellulitis Code(s): L03.90 - CELLULITIS, UNSPECIFIED Status: Acute (3) Schizoaffective disorder Code(s): F25.9 - SCHIZOAFFECTIVE DISORDER, UNSPECIFIED Status: Acute (4) Hypertension Code(s): I10 - ESSENTIAL (PRIMARY) HYPERTENSION Status: Chronic (5) LELE (acute kidney injury) Code(s): N17.9 - ACUTE KIDNEY FAILURE, UNSPECIFIED Status: Acute - Plan pt was very agitated and was given medication. will continue abx for now. doppler is negative. will add seroquel for tonight. will continue iv fluids. tried to call the number no answer. will get palliative care for this patient. 09/29 pt given meds for agitation last night. He is now drowsy. i called the shelter to ask his baseline. They informed me that he is agitated at time but at time he does well. They feed him finger foods and then he at times tries to feed himself. Per nursing he also ambulates. I did ask for any additional numbers since his did not steel pickler. They informed me it is the same number and at times pt's goes to see her sister. i have decreased the dose of geodon. will order finger food and get palliative care. his cellulitis is doing well. I am afraid he is not eating and will get more weaker. 09/30 pt did eat some food yesterday. His mood is better. will hold off on geodon and give him seroquel. will continue abx. will call his in am since she goes to see her sister in the afternoon. 10/01 erythema improving to right groin and right leg. Not sure if pt will stay still for mri of right leg.
[2019-10-02] MEDS: Dextrose 5 % And 0.9 % NaCl 1,000 ML IV SCH (00:45)
[2019-10-02 08:23] LABS: Vancomycin, Trough 15.4 ug/mL
[2019-10-02] MEDS: cefTRIAXone\\ROCEPHIN 1 GM in Sodium Chloride 0.9% 100 ML IVPB SCH (09:13)
[2019-10-02] MEDS: Aspirin Chewable 81 MG TAB PO SCH (09:13)
[2019-10-02] MEDS: Amlodipine 5 MG TAB PO SCH (09:13)
[2019-10-02] MEDS: Ascorbic Acid 500 mg Chewable Tablet PO SCH ×2 (09:14→19:52)
[2019-10-02] MEDS: Ferrous Sulfate 325 MG TAB PO SCH ×2 (09:14→19:50)
[2019-10-02] MEDS: Lactinex Tablet PO SCH (09:14)
[2019-10-02] MEDS: Polyethylene Glycol 3350 17 GM Packet PO SCH (09:15)
[2019-10-02] MEDS: Enoxaparin Sodium 30 MG/0.3 ML SYRINGE SC SCH (09:15)
[2019-10-02] MEDS: Zinc Sulfate 220 MG CAP PO SCH (09:18)
[2019-10-02] MEDS: Vancomycin HCl 1 GM in Premix Bag 1 BAG IVPB SCH (09:19)
[2019-10-02 09:29] LABS: Hemoglobin 11.9 g/dL (14.0-18.0); Mean Corpuscular HGB CONC 32.2 g/dL (32.0-36.0); Mean Corpuscular Hemoglobin 27.5 pg (27.0-31.0); Mean Corpuscular Volume 85.6 fL (78.0-98.0); Mean Platelet Volume 9.2 fL (7.4-10.4); Platelet Count 185 thou/uL (130-400); RBC Distribution Width 15.8 % (11.5-14.5); Red Blood Cell (RBC) Count 4.34 mill/uL (4.70-6.10); White Blood Cell (WBC) Count 13.5 thou/uL (4.8-10.8)
[2019-10-02 09:48] LABS: Albumin 2.8 g/dL (3.4-4.8); Anion Gap 13 mmol/L (10-20); BUN (Urea Nitrogen) 13 mg/dL (8.4-25.7); BUN/Creatinine Ratio 6.99; Calc. Creatinine Clearance 41 mL/min (70-130); Carbon Dioxide 24 mmol/L (23-31); Chloride 118 mmol/L (98-107); Estimated GFR-MDRD 42; Glucose 104 mg/dL (83-110); Phosphorus 2.6 mg/dL (2.3-4.7); Potassium 3.5 mmol/L (3.5-5.1); Sodium 151 mmol/L (136-145)
[2019-10-02] MEDS: hydrALAZINE 20 MG/ML VIAL SLOW IVP PRN (10:28)
[2019-10-02] MEDS: D5 1/4 NS 1,000 ML IV SCH (14:29)
--- NOTE | 2019-10-02 15:36 | PQF ---
CLINICAL DOCUMENTATION IMPROVEMENT CLARIFICATION FORM: ICD-10 Updated PLEASE DO AN ADDENDUM TO THE PROGRESS NOTE WITH ANY DOCUMENTATION UPDATES OR ADDITIONS AND CARRY THROUGH TO DC SUMMARY. THANK YOU. DATE: 10/02/19 ATTN : DR. WRIGHT Please exercise your independent, professional judgment in responding to the clarification form. Clinical indicators are provided on the bottom of this form for your review Please check appropriate box(s) to clarify if the following diagnosis has been ruled in or ruled out: "SEPSIS" [ ] Ruled in diagnosis [ ] Continue to treat [ ] Resolved [ ] Ruled out diagnosis [ ] Cannot rule out diagnosis [ ] Other diagnosis [ ] Unable to determine In addition, please specify: Present on Admission (POA): [ ] Yes [ ] No [ ] Unable to determine For continuity of documentation, please document condition throughout progress notes and discharge summary. Thank You. CLINICAL INDICATORS - SIGNS / SYMPTOMS / LABS / RESULTS AND LOCATION IN ER NOTE: "SEPSIS" WBC 09/27: 16.1 BANDS 09/28: 22 RISKS: CELLULITIS (H&P 09/27) TREATMENT: IV VANCOMYCIN (ER-PRESENT) IV ROCEPHIN (ER-12/03) LEVAQUIN (STARTED 10/02) IV FLUIDS (ER-PRESENT) SERIAL LABS (This form is maintained as a part of the permanent medical record) 2014 [employer]. All Rights Reserved [employer] [email or web address] Office: [phone] [facility]
--- NOTE | 2019-10-02 18:14 | PDOC.HOSPP ---
- Subjective Encounter Date: 10/02/19 Encounter Time: 11:39 Subjective: 84 y/o custodial resident, with dementia, prior CVA, HTN and bipolar admitted with worsening right distal leg wound associated with redness. Patient was unable to provide any significant history. - Objective Vital Signs & Weight: Vital Signs (12 hours) Temp Pulse Resp BP BP Pulse Ox 10/02/19 12:04 173/77 H 10/02/19 10:28 84 10/02/19 09:13 84 10/02/19 07:41 99.5 F 84 20 187/81 H 94 L Weight Admit Weight 220 lb Weight 220 lb I&O: 10/01/19 10/02/19 10/03/19 06:59 06:59 06:59 Intake Total 180 Balance 180 Result Diagrams: 10/02/19 09:11 10/02/19 09:11 Hospitalist ROS - Medication Medications: Active Medications Generic Name Dose Route Start Last Admin Trade Name Freq PRN Reason Stop Dose Admin Acidophilus 1 tab 09/28/19 09:00 10/02/19 09:14 Floranex PO 1 tab DAILY DIAN Administration Ascorbic Acid 500 mg 09/27/19 21:00 10/02/19 09:14 Vitamin C PO 500 mg BID DIAN Administration Aspirin 81 mg 09/28/19 09:00 10/02/19 09:13 Aspirin Chewable PO 81 mg DAILY DIAN Administration Enoxaparin Sodium 30 mg 09/28/19 09:00 10/02/19 09:15 Lovenox SC 30 mg 0900 DIAN Administration Ferrous Sulfate 325 mg 09/27/19 21:00 10/02/19 09:14 Feosol PO 325 mg BID DIAN Administration Hydralazine HCl 5 mg 09/28/19 08:15 10/02/19 10:28 Apresoline SLOW IVP 5 mg Q6H PRN Administration sbp>170 Vancomycin HCl 1 gm/ Device 200 mls @ 200 mls/hr 10/01/19 08:00 10/02/19 09: 19 IVPB 200 mls 0800 DIAN Administration Dextrose/Sodium Chloride 1,000 mls @ 125 mls/hr 10/02/19 12:00 10/02/19 14:29 D5 1/4 Ns IV 1,000 mls .Q8H DIAN Administration Metoprolol Succinate 50 mg 09/28/19 09:00 10/02/19 09:14 Toprol Xl PO 50 mg DAILY DIAN Administration Polyethylene Glycol 17 gm 09/28/19 09:00 10/02/19 09:15 Miralax PO 17 gm DAILY DIAN Administration Quetiapine Fumarate 50 mg 09/28/19 19:00 10/01/19 20:09 Seroquel PO 50 mg 1900 DIAN Administration Zinc Sulfate 220 mg 09/28/19 09:00 10/02/19 09:18 Zinc Sulfate PO Not Given DAILY DIAN - Exam General Appearance: awake alert Eye: anicteric sclera ENT: normocephalic atraumatic, dry oral mucosa Neck: supple, symmetric, no JVD Heart: RRR Respiratory: no wheezes, no ronchi, normal chest expansion, no tachypnea Gastrointestinal: soft, non-tender, non-distended, normal bowel sounds Extremities: no cyanosis Extremities - other findings: Right chronic venous stasis changes distal medial leg ulcer. erythema noted Neurological: cranial nerve grossly intact, no new deficit Hosp A/P (1) Hypernatremia Code(s): E87.0 - HYPEROSMOLALITY AND HYPERNATREMIA Status: Acute (2) LELE (acute kidney injury) Code(s): N17.9 - ACUTE KIDNEY FAILURE, UNSPECIFIED Status: Acute (3) Acute metabolic encephalopathy Code(s): G93.41 - METABOLIC ENCEPHALOPATHY Status: Acute (4) Cellulitis Code(s): L03.90 - CELLULITIS, UNSPECIFIED Status: Acute (5) Abnormality of gait and mobility Code(s): R26.9 - UNSPECIFIED ABNORMALITIES OF GAIT AND MOBILITY Status: Acute (6) Alzheimer's dementia with behavioral disturbance Code(s): G30.8 - OTHER ALZHEIMER'S DISEASE; F02.81 - DEMENTIA IN OTH DISEASES CLASSD ELSWHR W BEHAVIORAL DISTURB Status: Acute (7) Hypertension Code(s): I10 - ESSENTIAL (PRIMARY) HYPERTENSION Status: Chronic - Plan Substitute rocephin with levaquin. Continue IV vancomycin Start d5+1/4saline at 125 cc/hr given hypernatremia and lele. [place] oral intake advised increase amlodipine to get better BP control. Repeat CBC and renal function in the am. Wounfd care to continue.
[2019-10-02] MEDS: Ziprasidone 20 MG VIAL IM PRN (18:15)
[2019-10-02] MEDS ORDERED: Amlodipine 5 MG TAB PO SCH (21:00)
[2019-10-03] MEDS: hydrALAZINE 20 MG/ML VIAL SLOW IVP PRN (01:05)
[2019-10-03] MEDS: D5 1/4 NS 1,000 ML IV SCH ×6 (01:39→23:36)
[2019-10-03 07:12] LABS: Albumin 2.6 g/dL (3.4-4.8); Anion Gap 9 mmol/L (10-20); BUN (Urea Nitrogen) 14 mg/dL (8.4-25.7); BUN/Creatinine Ratio 7.87; Calc. Creatinine Clearance 43 mL/min (70-130); Calcium 8.6 mg/dL (7.8-10.44); Carbon Dioxide 25 mmol/L (23-31); Chloride 116 mmol/L (98-107); Estimated GFR-MDRD 44; Glucose 117 mg/dL (83-110); Phosphorus 2.5 mg/dL (2.3-4.7); Sodium 147 mmol/L (136-145)
[2019-10-03] MEDS: Zinc Sulfate 220 MG CAP PO SCH (08:47)
[2019-10-03] MEDS: Ferrous Sulfate 325 MG TAB PO SCH ×2 (08:48→20:56)
[2019-10-03] MEDS: Ascorbic Acid 500 mg Chewable Tablet PO SCH ×2 (08:48→20:56)
[2019-10-03] MEDS: Lactinex Tablet PO SCH (08:49)
[2019-10-03] MEDS: Aspirin Chewable 81 MG TAB PO SCH (08:50)
[2019-10-03] MEDS: Potassium Chloride 20 MEQ TAB PO SCH ×2 (08:54→20:56)
[2019-10-03] MEDS: Amlodipine 5 MG TAB PO SCH (08:57)
[2019-10-03] MEDS: Vancomycin HCl 1 GM in Premix Bag 1 BAG IVPB SCH (08:58)
[2019-10-03] MEDS: Polyethylene Glycol 3350 17 GM Packet PO SCH (08:59)
[2019-10-03] MEDS: Enoxaparin Sodium 30 MG/0.3 ML SYRINGE SC SCH (08:59)
--- NOTE | 2019-10-03 15:59 | PDOC.HOSPP ---
- Subjective Encounter Date: 10/03/19 Encounter Time: 10:57 Subjective: 84 y/o long term resident, with dementia, prior CVA, HTN and bipolar admitted with worsening right distal leg wound associated with redness. Patient was unable to provide any significant history. Still with restrains. Oral intake remained poor. No fever or vomiting. - Objective Vital Signs & Weight: Vital Signs (12 hours) Temp Pulse Resp BP BP Pulse Ox 10/03/19 08:57 71 10/03/19 07:48 98.0 F 71 20 162/78 H 94 L 10/03/19 04:00 97.4 F L 58 L 20 147/79 H 95 Weight Admit Weight 220 lb Weight 220 lb I&O: 10/02/19 10/03/19 10/04/19 06:59 06:59 06:59 Intake Total 1450 Balance 1450 Result Diagrams: 10/02/19 09:11 10/03/19 06:17 Hospitalist ROS - Medication Medications: Active Medications Generic Name Dose Route Start Last Admin Trade Name Freq PRN Reason Stop Dose Admin Acidophilus 1 tab 09/28/19 09:00 10/03/19 08:49 Floranex PO 1 tab DAILY DIAN Administration Amlodipine Besylate 10 mg 10/03/19 09:00 10/03/19 08:57 Norvasc PO 10 mg DAILY DIAN Administration Ascorbic Acid 500 mg 09/27/19 21:00 10/03/19 08:48 Vitamin C PO 500 mg BID DIAN Administration Aspirin 81 mg 09/28/19 09:00 10/03/19 08:50 Aspirin Chewable PO 81 mg DAILY DIAN Administration Enoxaparin Sodium 30 mg 09/28/19 09:00 10/03/19 08:59 Lovenox SC 30 mg 0900 DIAN Administration Ferrous Sulfate 325 mg 09/27/19 21:00 10/03/19 08:48 Feosol PO 325 mg BID DIAN Administration Hydralazine HCl 5 mg 09/28/19 08:15 10/03/19 01:05 Apresoline SLOW IVP 5 mg Q6H PRN Administration sbp>170 Vancomycin HCl 1 gm/ Device 200 mls @ 200 mls/hr 10/01/19 08:00 10/03/19 08: 58 IVPB 200 mls 0800 DIAN Administration Metoprolol Succinate 50 mg 09/28/19 09:00 10/03/19 08:48 Toprol Xl PO 50 mg DAILY DIAN Administration Polyethylene Glycol 17 gm 09/28/19 09:00 10/03/19 08:59 Miralax PO 17 gm DAILY DIAN Administration Potassium Chloride 40 meq 10/03/19 14:00 10/03/19 08:54 K-Dur PO 10/03/19 22:01 40 meq Q8HR DIAN Administration Quetiapine Fumarate 50 mg 09/28/19 19:00 10/02/19 19:48 Seroquel PO 50 mg 1900 DIAN Administration Zinc Sulfate 220 mg 09/28/19 09:00 10/03/19 08:47 Zinc Sulfate PO 220 mg DAILY DIAN Administration Ziprasidone 5 mg 09/29/19 13:34 10/02/19 18:15 Geodon IM 5 mg BIDPRN PRN Administration Agitation - Exam General Appearance: awake alert General - other findings: confused Eye: anicteric sclera ENT: normocephalic atraumatic, dry oral mucosa Neck: supple, symmetric, no JVD Heart: RRR Respiratory - other findings: fair air entry bilaterally with scattered transmitted sound Gastrointestinal: soft, non-distended, normal bowel sounds Extremities - other findings: mild right foream/hand edema and R distal leg dressing/edema/erythem noted Neurological: cranial nerve grossly intact Neurological - other findings: awake but confused Hosp A/P (1) Hypernatremia Code(s): E87.0 - HYPEROSMOLALITY AND HYPERNATREMIA Status: Acute (2) LELE (acute kidney injury) Code(s): N17.9 - ACUTE KIDNEY FAILURE, UNSPECIFIED Status: Acute (3) Acute metabolic encephalopathy Code(s): G93.41 - METABOLIC ENCEPHALOPATHY Status: Acute (4) Cellulitis Code(s): L03.90 - CELLULITIS, UNSPECIFIED Status: Acute (5) Abnormality of gait and mobility Code(s): R26.9 - UNSPECIFIED ABNORMALITIES OF GAIT AND MOBILITY Status: Acute (6) Alzheimer's dementia with behavioral disturbance Code(s): G30.8 - OTHER ALZHEIMER'S DISEASE; F02.81 - DEMENTIA IN OTH DISEASES CLASSD ELSWHR W BEHAVIORAL DISTURB Status: Acute (7) Hypertension Code(s): I10 - ESSENTIAL (PRIMARY) HYPERTENSION Status: Chronic (8) Hypokalemia Code(s): E87.6 - HYPOKALEMIA Status: Acute - Plan Replete serum potassium Continue antibiotics Continue hypotonic solution [place] oral intake as tolerated. Wound care to continue.
--- NOTE | 2019-10-03 21:58 | RAD ---
Portable frontal chest radiograph: 10/03/2019 COMPARISON: 06/02/2019 HISTORY: Shortness of breath, crackles FINDINGS: Stable prominence of the cardiac silhouette. There is atherosclerotic calcification of the aortic arch. No pneumothorax or pleural fluid. No focal consolidation or alveolar edema. The thoracic aorta is tortuous and prominent. IMPRESSION: No focal consolidation or alveolar edema.
[2019-10-04] MEDS: Ferrous Sulfate 325 MG TAB PO SCH ×2 (08:54→20:06)
[2019-10-04] MEDS: Aspirin Chewable 81 MG TAB PO SCH (08:54)
[2019-10-04] MEDS: Ascorbic Acid 500 mg Chewable Tablet PO SCH ×2 (08:54→20:06)
[2019-10-04] MEDS: Zinc Sulfate 220 MG CAP PO SCH (08:54)
[2019-10-04] MEDS: Amlodipine 5 MG TAB PO SCH (08:54)
[2019-10-04] MEDS: Vancomycin HCl 1 GM in Premix Bag 1 BAG IVPB SCH (08:55)
[2019-10-04] MEDS: Enoxaparin Sodium 30 MG/0.3 ML SYRINGE SC SCH (09:01)
[2019-10-04] MEDS: Polyethylene Glycol 3350 17 GM Packet PO SCH (09:01)
[2019-10-04] MEDS: D5 1/4 NS 1,000 ML IV SCH ×3 (10:11→20:06)
[2019-10-04 11:09] LABS: Albumin 2.7 g/dL (3.4-4.8); Anion Gap 11 mmol/L (10-20); BUN (Urea Nitrogen) 15 mg/dL (8.4-25.7); BUN/Creatinine Ratio 8.43; Calc. Creatinine Clearance 43 mL/min (70-130); Calcium 8.5 mg/dL (7.8-10.44); Carbon Dioxide 23 mmol/L (23-31); Chloride 113 mmol/L (98-107); Estimated GFR-MDRD 44; Glucose 111 mg/dL (83-110); Phosphorus 2.5 mg/dL (2.3-4.7); Potassium 3.4 mmol/L (3.5-5.1); Sodium 144 mmol/L (136-145)
[2019-10-04 11:14] LABS: Vancomycin, Trough 37.8 ug/mL
[2019-10-04] MEDS: Lactinex Tablet PO SCH (11:21)
--- NOTE | 2019-10-04 16:07 | PDOC.HOSPP ---
- Subjective Encounter Date: 10/04/19 Encounter Time: 16:05 Subjective: 84 y/o intermediate resident, with dementia, prior CVA, HTN and bipolar admitted with worsening right distal leg wound associated with redness. Still confused and with restrains to prevent him pulling on IV access. Oral intake remained poor. No fever or vomiting. - Objective Vital Signs & Weight: Vital Signs (12 hours) Temp Pulse Resp BP BP BP Pulse Ox 10/04/19 08:54 80 147/68 H 10/04/19 08:00 95 10/04/19 07:36 97.8 F 80 20 148/79 H 95 10/04/19 05:00 97.8 F 74 18 166/75 H 94 L Weight Admit Weight 220 lb Weight 220 lb I&O: 10/03/19 10/04/19 10/05/19 06:59 06:59 06:59 Intake Total 1450 1800 Balance 1450 1800 Result Diagrams: 10/02/19 09:11 10/04/19 09:59 Hospitalist ROS - Medication Medications: Active Medications Generic Name Dose Route Start Last Admin Trade Name Freq PRN Reason Stop Dose Admin Acidophilus 1 tab 09/28/19 09:00 10/04/19 11:21 Floranex PO Not Given DAILY [facility] Amlodipine Besylate 10 mg 10/03/19 09:00 10/04/19 08:54 Norvasc PO 10 mg DAILY DIAN Administration Ascorbic Acid 500 mg 09/27/19 21:00 10/04/19 08:54 Vitamin C PO 500 mg BID DIAN Administration Aspirin 81 mg 09/28/19 09:00 10/04/19 08:54 Aspirin Chewable PO 81 mg DAILY DIAN Administration Enoxaparin Sodium 30 mg 09/28/19 09:00 10/04/19 09:01 Lovenox SC 30 mg 0900 DIAN Administration Ferrous Sulfate 325 mg 09/27/19 21:00 10/04/19 08:54 Feosol PO 325 mg BID DIAN Administration Hydralazine HCl 5 mg 09/28/19 08:15 10/03/19 01:05 Apresoline SLOW IVP 5 mg Q6H PRN Administration sbp>170 Vancomycin HCl 1 gm/ Device 200 mls @ 200 mls/hr 10/01/19 08:00 10/04/19 08: 55 IVPB 200 mls 0800 DIAN Administration Dextrose/Sodium Chloride 1,000 mls @ 125 mls/hr 10/03/19 15:56 10/04/19 10:11 D5 1/4 Ns IV 1,000 mls .Q8H DIAN Administration Levofloxacin 750 mg 10/04/19 06:00 10/04/19 05:32 Levaquin PO 750 mg Q2D@0600 DIAN Administration Metoprolol Succinate 50 mg 09/28/19 09:00 10/04/19 08:54 Toprol Xl PO 50 mg DAILY DIAN Administration Polyethylene Glycol 17 gm 09/28/19 09:00 10/04/19 09:01 Miralax PO 17 gm DAILY DIAN Administration Quetiapine Fumarate 50 mg 10/03/19 21:00 10/03/19 20:55 Seroquel PO 50 mg 2100 DIAN Administration Zinc Sulfate 220 mg 09/28/19 09:00 10/04/19 08:54 Zinc Sulfate PO 220 mg DAILY DIAN Administration Ziprasidone 5 mg 09/29/19 13:34 10/02/19 18:15 Geodon IM 5 mg BIDPRN PRN Administration Agitation - Exam General Appearance: awake alert General - other findings: confused Eye: anicteric sclera ENT: normocephalic atraumatic, moist mucosa Neck: symmetric, no JVD Heart: RRR Respiratory: no wheezes, no ronchi, normal chest expansion Gastrointestinal: soft, non-tender, non-distended, normal bowel sounds Extremities - other findings: right distal medial leg dressing with edema and regressing erythema. Neurological: cranial nerve grossly intact, no focal deficits Neurological - other findings: Oriented to person. confused Hosp A/P (1) Cellulitis Code(s): L03.90 - CELLULITIS, UNSPECIFIED Status: Acute (2) Acute metabolic encephalopathy Code(s): G93.41 - METABOLIC ENCEPHALOPATHY Status: Acute (3) Hypernatremia Code(s): E87.0 - HYPEROSMOLALITY AND HYPERNATREMIA Status: Acute (4) LELE (acute kidney injury) Code(s): N17.9 - ACUTE KIDNEY FAILURE, UNSPECIFIED Status: Acute (5) Abnormality of gait and mobility Code(s): R26.9 - UNSPECIFIED ABNORMALITIES OF GAIT AND MOBILITY Status: Acute (6) Alzheimer's dementia with behavioral disturbance Code(s): G30.8 - OTHER ALZHEIMER'S DISEASE; F02.81 - DEMENTIA IN OTH DISEASES CLASSD ELSWHR W BEHAVIORAL DISTURB Status: Acute (7) Hypertension Code(s): I10 - ESSENTIAL (PRIMARY) HYPERTENSION Status: Chronic (8) Hypokalemia Code(s): E87.6 - HYPOKALEMIA Status: Acute - Plan Replete serum potassium Continue antibiotics Continue hypotonic solution [place] oral intake as tolerated. Wound care to continue. Continue supportive care
[2019-10-04] MEDS ORDERED: Potassium Chloride 20 MEQ TAB PO SCH (16:15)
[2019-10-05] MEDS: D5 1/4 NS 1,000 ML IV SCH (06:09)
[2019-10-05 07:10] LABS: Hemoglobin 10.5 g/dL (14.0-18.0); Mean Corpuscular HGB CONC 31.8 g/dL (32.0-36.0); Mean Corpuscular Hemoglobin 27.3 pg (27.0-31.0); Mean Corpuscular Volume 85.7 fL (78.0-98.0); Mean Platelet Volume 8.1 fL (7.4-10.4); Platelet Count 229 thou/uL (130-400); RBC Distribution Width 15.9 % (11.5-14.5); Red Blood Cell (RBC) Count 3.87 mill/uL (4.70-6.10); White Blood Cell (WBC) Count 8.4 thou/uL (4.8-10.8)
[2019-10-05 07:31] LABS: Vancomycin, Trough 15.8 ug/mL
[2019-10-05 07:32] LABS: Albumin 2.6 g/dL (3.4-4.8); Anion Gap 11 mmol/L (10-20); BUN (Urea Nitrogen) 14 mg/dL (8.4-25.7); Calc. Creatinine Clearance 51 mL/min (70-130); Calcium 8.4 mg/dL (7.8-10.44); Carbon Dioxide 22 mmol/L (23-31); Chloride 112 mmol/L (98-107); Estimated GFR-MDRD 54; Glucose 98 mg/dL (83-110); Phosphorus 2.7 mg/dL (2.3-4.7); Potassium 3.5 mmol/L (3.5-5.1); Sodium 141 mmol/L (136-145)
[2019-10-05] MEDS: Vancomycin HCl 1 GM in Premix Bag 1 BAG IVPB SCH (08:25)
[2019-10-05] MEDS: Zinc Sulfate 220 MG CAP PO SCH (08:26)
[2019-10-05] MEDS: Ascorbic Acid 500 mg Chewable Tablet PO SCH ×2 (08:26→20:37)
[2019-10-05] MEDS: Amlodipine 5 MG TAB PO SCH (08:28)
[2019-10-05] MEDS: Ferrous Sulfate 325 MG TAB PO SCH ×2 (08:29→20:37)
[2019-10-05] MEDS: Aspirin Chewable 81 MG TAB PO SCH (08:29)
[2019-10-05] MEDS: Lactinex Tablet PO SCH (08:30)
[2019-10-05] MEDS: Enoxaparin Sodium 30 MG/0.3 ML SYRINGE SC SCH (08:30)
[2019-10-05] MEDS: Polyethylene Glycol 3350 17 GM Packet PO SCH (08:35)
[2019-10-05] MEDS: Doxycycline 100 MG CAP PO SCH ×2 (09:15→20:37)
--- NOTE | 2019-10-05 15:36 | PDOC.HOSPP ---
- Subjective Encounter Date: 10/05/19 Encounter Time: 10:35 Subjective: 84 y/o snf resident, with dementia, prior CVA, HTN and bipolar admitted with worsening right distal leg wound associated with redness. Still confused and with restrains to prevent him pulling on IV access. Oral intake remained poor. No fever or vomiting. Refusing oral meds atimes. - Objective Vital Signs & Weight: Vital Signs (12 hours) Temp Pulse Resp BP BP Pulse Ox 10/05/19 08:28 62 130/69 10/05/19 08:00 96 10/05/19 07:32 98.5 F 62 18 130/69 96 Weight Admit Weight 220 lb Weight 220 lb I&O: 10/04/19 10/05/19 10/06/19 06:59 06:59 06:59 Intake Total 1800 2960 Balance 1800 2960 Result Diagrams: 10/05/19 06:52 10/05/19 06:53 Hospitalist ROS - Medication Medications: Active Medications Generic Name Dose Route Start Last Admin Trade Name Freq PRN Reason Stop Dose Admin Acetaminophen 650 mg 09/27/19 14:14 10/05/19 08:27 Tylenol PO 650 mg Q4H PRN Administration Headache/Fever/Mild Pain (1-3) Acidophilus 1 tab 09/28/19 09:00 10/05/19 08:30 Floranex PO Not Given DAILY DIAN Amlodipine Besylate 10 mg 10/03/19 09:00 10/05/19 08:28 Norvasc PO 10 mg DAILY DIAN Administration Ascorbic Acid 500 mg 09/27/19 21:00 10/05/19 08:26 Vitamin C PO 500 mg BID DIAN Administration Aspirin 81 mg 09/28/19 09:00 10/05/19 08:29 Aspirin Chewable PO 81 mg DAILY DIAN Administration Doxycycline Hyclate 100 mg 10/05/19 09:00 10/05/19 09:15 Vibramycin PO 100 mg BID DIAN Administration Ferrous Sulfate 325 mg 09/27/19 21:00 10/05/19 08:29 Feosol PO 325 mg BID DIAN Administration Hydralazine HCl 5 mg 09/28/19 08:15 10/03/19 01:05 Apresoline SLOW IVP 5 mg Q6H PRN Administration sbp>170 Levofloxacin 750 mg 10/04/19 06:00 10/04/19 05:32 Levaquin PO 750 mg Q2D@0600 DIAN Administration Metoprolol Succinate 50 mg 09/28/19 09:00 10/05/19 08:31 Toprol Xl PO 50 mg DAILY DIAN Administration Polyethylene Glycol 17 gm 09/28/19 09:00 10/05/19 08:35 Miralax PO 17 gm DAILY DIAN Administration Quetiapine Fumarate 50 mg 10/03/19 21:00 10/04/19 20:06 Seroquel PO 50 mg 2100 DIAN Administration Zinc Sulfate 220 mg 09/28/19 09:00 10/05/19 08:26 Zinc Sulfate PO 220 mg DAILY DIAN Administration Ziprasidone 5 mg 09/29/19 13:34 10/02/19 18:15 Geodon IM 5 mg BIDPRN PRN Administration Agitation - Exam General Appearance: awake alert Eye: anicteric sclera ENT: normocephalic atraumatic, moist mucosa Neck: symmetric, no JVD Heart: RRR Respiratory: no wheezes, no rales, no ronchi, normal chest expansion, no tachypnea Gastrointestinal: soft, non-tender, non-distended, normal bowel sounds Extremities - other findings: mild distal right leg dressing and edema Neurological: cranial nerve grossly intact Neurological - other findings: confused Hosp A/P (1) Venous ulcer of right leg Code(s): I83.019 - VARICOSE VEINS OF RIGHT LOWER EXTREMITY W ULCER OF UNSP SITE ; L97.919 - NON-PRS CHRONIC ULC UNSP PRT OF R LOW LEG W UNSP SEVERITY Status: Acute (2) Cellulitis Code(s): L03.90 - CELLULITIS, UNSPECIFIED Status: Acute (3) Acute metabolic encephalopathy Code(s): G93.41 - METABOLIC ENCEPHALOPATHY Status: Acute (4) Hypernatremia Code(s): E87.0 - HYPEROSMOLALITY AND HYPERNATREMIA Status: Acute (5) LELE (acute kidney injury) Code(s): N17.9 - ACUTE KIDNEY FAILURE, UNSPECIFIED Status: Acute (6) Abnormality of gait and mobility Code(s): R26.9 - UNSPECIFIED ABNORMALITIES OF GAIT AND MOBILITY Status: Acute (7) Alzheimer's dementia with behavioral disturbance Code(s): G30.8 - OTHER ALZHEIMER'S DISEASE; F02.81 - DEMENTIA IN OTH DISEASES CLASSD ELSWHR W BEHAVIORAL DISTURB Status: Acute (8) Hypertension Code(s): I10 - ESSENTIAL (PRIMARY) HYPERTENSION Status: Chronic (9) Hypokalemia Code(s): E87.6 - HYPOKALEMIA Status: Acute - Plan DC restraint Continue antibiotics but change to oral DC hypotonic solution with resolution of hypernatremia [place] oral intake as tolerated. Wound care to continue. Continue supportive care Possible discharge tomorrow.
[2019-10-05] MEDS: Ziprasidone 20 MG VIAL IM PRN (20:33)
[2019-10-06 06:13] LABS: Hemoglobin 10.5 g/dL (14.0-18.0); Mean Corpuscular HGB CONC 31.9 g/dL (32.0-36.0); Mean Corpuscular Hemoglobin 27.4 pg (27.0-31.0); Mean Corpuscular Volume 85.9 fL (78.0-98.0); Mean Platelet Volume 8.4 fL (7.4-10.4); Platelet Count 236 thou/uL (130-400); RBC Distribution Width 15.6 % (11.5-14.5); Red Blood Cell (RBC) Count 3.83 mill/uL (4.70-6.10); White Blood Cell (WBC) Count 6.7 thou/uL (4.8-10.8)
[2019-10-06 06:34] LABS: Albumin 2.5 g/dL (3.4-4.8); Anion Gap 10 mmol/L (10-20); BUN (Urea Nitrogen) 13 mg/dL (8.4-25.7); BUN/Creatinine Ratio 9.63; Calc. Creatinine Clearance 56 mL/min (70-130); Calcium 8.5 mg/dL (7.8-10.44); Carbon Dioxide 24 mmol/L (23-31); Chloride 111 mmol/L (98-107); Estimated GFR-MDRD 61; Glucose 75 mg/dL (83-110); Phosphorus 3.1 mg/dL (2.3-4.7); Potassium 3.4 mmol/L (3.5-5.1); Sodium 142 mmol/L (136-145)
[2019-10-06 08:17] VITALS: BP 175/88; TEMP 97.5
[2019-10-06] MEDS ORDERED: Potassium Chloride 20 MEQ TAB PO SCH (08:30)
[2019-10-06] MEDS: Lactinex Tablet PO SCH (08:54)
[2019-10-06] MEDS ORDERED: Enoxaparin Sodium 40 MG/0.4 ML SYRINGE SC SCH (09:00)
[2019-10-06] MEDS: Amlodipine 5 MG TAB PO SCH (09:11)
[2019-10-06] MEDS: Doxycycline 100 MG CAP PO SCH (09:12)
[2019-10-06] MEDS: Zinc Sulfate 220 MG CAP PO SCH (09:13)
[2019-10-06] MEDS: Ascorbic Acid 500 mg Chewable Tablet PO SCH (09:13)
[2019-10-06] MEDS: Aspirin Chewable 81 MG TAB PO SCH (09:13)
[2019-10-06] MEDS: Ferrous Sulfate 325 MG TAB PO SCH (09:13)
[2019-10-06] MEDS: Polyethylene Glycol 3350 17 GM Packet PO SCH (09:14)
--- NOTE | 2019-10-06 21:03 | DIS ---
DATE OF ADMISSION: 09/27/2019 DATE OF DISCHARGE: 10/06/2019 PRIMARY CARE PHYSICIAN: Dr. Esteban Marroquin. DISCHARGE DIAGNOSES: 1. Right distal leg venous ulcer with infection. 2. Right lower extremity cellulitis. 3. Acute metabolic encephalopathy. 4. Hyponatremia. 5. Acute kidney injury. 6. Dementia with behavioral disturbances. 7. Hypertension. 8. Hypokalemia. 9. Abnormality of gait and mobility. HOSPITAL COURSE: An 84-year-old male, custodial resident, with past medical history significant for dementia, prior CVA, hypertension, as well as bipolar disorder, admitted with worsening right distal leg wound associated with redness and swelling. The patient also was found to have a worsening mental status as well as as hypernatremia and acute kidney injury, which was felt thought to be due to poor oral intake. Acute DVT was ruled out with venous Doppler. The patient was started on broad- spectrum antibiotic therapy as well as wound care with improvement. He was treated with hypotonic solution for hyponatremia and acute kidney injury with improvement. The patient had required restraint due to behavioral changes, which improved with supportive care and antipsychotics. Antibiotics were later transitioned from IV to p.o. and was subsequently discharged back to the custodial for continuation of wound care. PHYSICAL EXAMINATION: VITAL SIGNS: Temperature 97.5, pulse 61, respiratory rate 20, SpO2 of 96% on room air, blood pressure is 175/88. GENERAL: Comfortable, confused male, in no distress. Afebrile, anicteric, acyanotic. HEENT: Normocephalic, atraumatic. Oral mucosa is moist. CARDIOVASCULAR: Regular rhythm. RESPIRATORY: Good air entry bilaterally with no obvious crackle or rhonchi or use of accessory muscles. GI: Obese, soft, nontender, nondistended with normal bowel sounds. EXTREMITIES: Right leg covered with dressing. BRANCH OPERATIONS MANAGER: Conscious and awake. Cranial nerves 2 through 12 are grossly intact. The patient is very confused. DISCHARGE CONDITION: Stable. DISCHARGE DISPOSITION: long term. DISCHARGE MEDICATIONS: See discharge med rec. Prior to hospital medications were continued with the only new medications being antibiotics, levofloxacin and doxycycline. TIME SPENT: Discharge took more than 33 minutes. Job ID: [id number] MTDD
== END 2019-10-06 15:09 | DRG 602 ==
LOC: ERS 12:31 → T4-B 14:23
PROVIDERS: ADMIT Internal Medicine; ATTEND Internal Medicine
DX: L03.115 Cellulitis of right lower limb (principal); G93.41 Metabolic encephalopathy; N17.9 Acute kidney failure, unspecified; I83.219 Varicose veins of right lower extremity with both ulcer of unspecified site and inflammation; L97.919 Non-pressure chronic ulcer of unspecified part of right lower leg with unspecified severity; E87.1 Hypo-osmolality and hyponatremia; F03.91 Unspecified dementia, unspecified severity, with behavioral disturbance; E87.0 Hyperosmolality and hypernatremia; I10 Essential (primary) hypertension; E87.6 Hypokalemia; R26.9 Unspecified abnormalities of gait and mobility; F31.9 Bipolar disorder, unspecified; Z86.73 Personal history of transient ischemic attack (TIA), and cerebral infarction without residual deficits; Z88.0 Allergy status to penicillin; Z88.8 Allergy status to other drugs, medicaments and biological substances; F25.9 Schizoaffective disorder, unspecified
CPT/HCPCS: 36415; 36416; 51701; 71045; 80048; 80053; 80069; 80202; 81003; 81015; 83605; 83735; 85025; 85027; 87040; 87086; 93970; 96365; J0360; J0696; J1650; J3370; J3486; J3490; J7042; J7050